=== PATIENT | female | born 1965 | race African-American/Black ===

== ENCOUNTER → 2018-03-03 | Outpatient (CLI) | payer MEDICAID | END | disposition home or self-care (01) | LOC: PCVCCLINIC 10:50 | PROVIDERS: ATTEND Internal Medicine Cardiovascular Disease | DX: I42.0 Dilated cardiomyopathy (principal); I10 Essential (primary) hypertension; I34.0 Nonrheumatic mitral (valve) insufficiency; Z79.82 Long term (current) use of aspirin | CPT/HCPCS: 93005; G0463 ==

== ENCOUNTER → 2018-03-31 | Outpatient (CLI) | payer MEDICAID | END | disposition home or self-care (01) | LOC: PCVCCLINIC 10:04 | PROVIDERS: ATTEND Internal Medicine Cardiovascular Disease | DX: I50.9 Heart failure, unspecified (principal); E78.00 Pure hypercholesterolemia, unspecified | CPT/HCPCS: 36415 ==

== ENCOUNTER → 2018-04-18 | Outpatient (CLI) | payer MEDICAID | END | disposition home or self-care (01) | LOC: PCVCCLINIC 12:40 | PROVIDERS: ATTEND Internal Medicine Cardiovascular Disease | DX: I10 Essential (primary) hypertension (principal); I42.0 Dilated cardiomyopathy; E78.00 Pure hypercholesterolemia, unspecified; R60.9 Edema, unspecified; D64.9 Anemia, unspecified; I11.0 Hypertensive heart disease with heart failure; I50.9 Heart failure, unspecified; Z79.82 Long term (current) use of aspirin | CPT/HCPCS: 93005; G0463 ==

== ENCOUNTER → 2018-05-03 | Outpatient (CLI) | payer MEDICAID | END | disposition home or self-care (01) | LOC: PCVCCLINIC 11:27 | PROVIDERS: ATTEND Internal Medicine Cardiovascular Disease | DX: I10 Essential (primary) hypertension (principal); E78.00 Pure hypercholesterolemia, unspecified; I50.9 Heart failure, unspecified | CPT/HCPCS: 36415; 80061 ==

== ENCOUNTER → 2018-05-16 | Outpatient (CLI) | payer MEDICAID ==
--- NOTE | 2018-05-16 16:32 | PCVCIMAG ---
APPROVED REPORT Study performed: 05/16/2018 15:29:05 EXAM: Comprehensive 2D, Doppler, and color-flow Echocardiogram Patient Location: Echo lab Status: routine BSA: 1.91 HR: 67 bpmBP: 130/80 mmHg Rhythm: NSR Other Information Study Quality: Good Risk Factors: Cardiac Risk Factors: HTN, Hyperlipidemia Indications Cardiomyopathy 2D Dimensions IVSd: 9.06 (7-11mm)LVOT Diam: 22.00 (18-24mm) LVDd: 66.16 mm PWd: 10.20 (7-11mm)Ascending Ao: 31.55 (22-36mm) LVDs: 54.52 (25-40mm) Left Atrium: 45.31 (27-40mm) Aortic Root: 33.18 mm LV Single Plane 4CH: 38.00 % LV Single Plane 2CH: 40.00 % Biplane EF: 44.5 % Volumes Left Atrial Volume (Systole) Single Plane 4CH: 75.40 mLSingle Plane 2CH: 63.48 mL LA ESV Index: 40.00 mL/m2 Aortic Valve AoV Peak Darci.: 1.67 m/s AO Peak Gr.: 11.21 mmHgLVOT Max P.11 mmHg LVOT Max V: 1.01 m/s JOSE Vmax: 2.24 cm2 Mitral Valve E/A Ratio: 0.8 MV Decel. Time: 439.18 ms MV E Max Darci.: 1.15 m/s MV A Darci.: 1.41 m/s MV PHT: 127.36 ms IVRT: 55.36 ms TDI E/Lateral E': 19.17E/Medial E': 23.00 Medial E' Darci.: 0.05 m/s Lateral E' Darci.: 0.06 m/s Pulmonary Valve PV Peak Darci.: 1.09 m/sPV Peak Gr.: 4.73 mmHg WA End Vmax: 1.73 m/s Pulmonary Vein P Vein S: 0.60 m/sP Vein A: 0.22 m/s P Vein D: 0.36 m/sP Vein A Dur.: 86.5 msec P Vein S/D Ratio: 1.67 Tricuspid Valve RAP Estimate: 7.00 mmHg Left Ventricle Left ventricle is dilated. There is normal left ventricular wall thickness. Left ventricular systolic function is mild to moderately decreased. LVEF is 40-45%. Grade I - abnormal relaxation pattern. Right Ventricle The right ventricle is normal size. The right ventricular systolic function is normal. Atria Left atrium is mildly dilated. Right atrium is mildly dilated. Aortic Valve The aortic valve is normal in structure. Trace aortic regurgitation. There is no aortic valvular stenosis. Mitral Valve The mitral valve is normal in structure. Mild mitral regurgitation. No evidence of mitral valve stenosis. Tricuspid Valve The tricuspid valve is normal in structure. Trace tricuspid regurgitation. Unable to assess PA pressure. Pulmonic Valve The pulmonary valve is normal in structure. Mild pulmonic regurgitation. Great Vessels The aortic root is normal in size. IVC is normal in size and collapses >50% with inspiration. Pericardium There is no pericardial effusion. <Conclusion> Left ventricle is dilated. Left ventricular systolic function is mild to moderately decreased. Grade I - abnormal relaxation pattern. The right ventricle is normal size. Left atrium is mildly dilated. Right atrium is mildly dilated. Trace aortic regurgitation. Mild mitral regurgitation. Trace tricuspid regurgitation.
== END | disposition home or self-care (01) ==
LOC: PCVCIMAG 15:15
PROVIDERS: ATTEND Internal Medicine Cardiovascular Disease
DX: I34.0 Nonrheumatic mitral (valve) insufficiency (principal); I42.0 Dilated cardiomyopathy; I10 Essential (primary) hypertension; R60.9 Edema, unspecified; Z98.890 Other specified postprocedural states
CPT/HCPCS: 93005; 93306; G0463

== ENCOUNTER → 2018-11-14 | Outpatient (CLI) | payer MEDICAID | END | disposition home or self-care (01) | LOC: PCVCCLINIC 14:30 | PROVIDERS: ATTEND Internal Medicine Cardiovascular Disease | DX: I42.9 Cardiomyopathy, unspecified (principal); I08.0 Rheumatic disorders of both mitral and aortic valves; I11.0 Hypertensive heart disease with heart failure; I50.9 Heart failure, unspecified; Z98.890 Other specified postprocedural states | CPT/HCPCS: 93005; G0463 ==